=== PATIENT | male | born 1980 | race Caucasian/White ===

== ENCOUNTER 2019-03-10 11:31 | Emergency (ER) | payer BC, SELFPAY ==
[2019-03-10 11:32] VITALS: BP 163/97; PULSE 114; RESP 18; TEMP 36.3; O2SAT 96; BMI 47.5
--- NOTE | 2019-03-10 12:40 | ED.VISSUMM ---
- ER Visit Summary Date of Service: 03/10/19 Chief Complaint: Back pain History of Present Illness: The patient is a 38 M presenting for evaluation secondary to back pain. Patient reports that over the course of the last 3 days he has had a gradual onset of back pain. Is located in his lower back and radiates down his left leg to approximately the level of his calf. He denies that there is any sort of injury associated with this, no increased activity lifting twisting pushing pulling or fall. It is continuous type pain that is worse with movement. Patient states that it has been causing him to have some sweats. He denies any weakness bowel or bladder incontinence or fevers. He denies any recent injections surgeries or history of IV drug abuse. Review of systems otherwise negative. Physical Examination: Vitals: Within normal limits General: Well-nourished well-developed no acute distress Head: Normocephalic atraumatic ENT: Moist mucous membranes Neck: Supple no JVD Cardiovascular: Heart regular rate and rhythm no murmurs Respiratory: Respirations nondistressed, lung sounds clear to auscultation bilaterally Abdominal: Soft, nontender, nondistended, normal bowel sounds, no evidence of abdominal masses or pulsatile mass Back: Normal to inspection, no midline tenderness to palpation, left-sided paraspinal tenderness at the SI joint, straight leg raise positive on the left at about 20 degrees Extremities: Nontender, nonedematous, 2+ radial and PT pulses bilaterally symmetric Skin: Normal color no rash Neuro: 5/5 strength hip flexion, knee flexion, knee extension, dorsiflexion, plantarflexion, EHL. Sensation intact over all dermatomes of the lower extremities bilaterally, 2+ patellar and Achilles reflexes bilaterally symmetric, negative clonus bilaterally Test Results: Lumbar x-rays per radiology shows some degenerative disease Emergency Department Course and Treatment: Patient presented secondary to back pain. His pain was addressed with Toradol [place] and Flexeril. X-rays showed some degenerative disc disease. Repeat evaluation in a patient at 1330 showed symptomatic improvement. Patient has no red flag signs or symptoms, he has a nonfocal neurologic exam, and I believe that his pain likely is from lumbar radiculopathy. Patient will be sent home with a short course of [place] and a Medrol pack. All questions were answered and patient was discharged. Disposition: Discharge Impression: 1. Lumbar radiculopathy This note was generated with [employer] dictation software. It may contain incorrect words, spelling, and punctuation that were not noted in review of the chart prior to signing ED Disposition - Plan for ED Patient: Disposition: Home or Assisted Living Diagnosis: Lumbar radiculopathy, acute Instructions: ED Sciatica Prescriptions: Hydrocodone Bitart/Apap 5-325 [[place] 5MG-325MG] 1 tab PO Q6H PRN PRN 3 Days #12 tab PRN Reason: Pain MethylPREDNISolone DosePak [Medrol DosePak] 4 mg PO UD #1 box Referrals: Hunter La MD [Primary Care Provider] - 1 Week if not improving
[2019-03-10] MEDS: HYDROcodone Bitartrate/Apap 5/325 Tablet PO (12:41)
[2019-03-10] MEDS: Ketorolac 30 MG/ML Syringe IM (12:41)
--- NOTE | 2019-03-10 13:00 | RAD_ITS ---
STUDY: X-RAY - LUMBAR SPINE REASON FOR EXAM: Male, 38 years old. lower back pain since Friday -- patient claims previously injured back 4 years ago TECHNIQUE: 3 view(s) of the lumbar spine were obtained. COMPARISON: None FINDINGS: Normal lumbar lordosis. There is multilevel endplate spondylosis of the lumbar vertebrae. There is multi-level degenerative disc disease with multi-level disc space narrowing. The soft tissue structures are unremarkable. RAD/Lumbar Spine 2 or 3 Views IMPRESSION: Degenerative changes of the spine. Electronically Signed: Dionte Spangler MD at 13:22 EDT Tel , Service support ,
== END 2019-03-10 13:52 | disposition home or self-care (01) ==
PROVIDERS: Emergency Provider Emergency Medicine; Family Provider Family Medicine; PCP Family Medicine
DX: M54.16 Radiculopathy, lumbar region (principal)
CPT/HCPCS: 72100; 96372; 99283

== ENCOUNTER → 2019-07-21 08:50 | Outpatient (CLI) | payer BC, SELFPAY ==
[2019-07-21 12:22] LABS: Absolute Neutrophil Count 3.7 X10^3/uL (2.0-7.7); Basophil# 0.04 X10^3/uL; Basophil% 0.5 % (0-1); Eosinophil# 0.26 X10^3/uL; Eosinophils% 3.5 % (0-5); Hematocrit 45.9 % (40-54); Hemoglobin 15.1 g/dL (13.0-16.5); Lymphocyte % 35.1 % (19-41); Mean Corp Hgb Conc 32.9 g/dL (32-36); Mean Corpuscular Hgb 29.8 pg (27.0-32.0); Mean Corpuscular Volume 90.7 fL (80-94); Mean Platelet Vol. 10.6 fl (6.2-12.0); Monocyte# 0.81 X10^3/uL; Monocyte% 10.9 % (0-10); NRBC Flagged by Analyzer 0 % (0-5); Neutrophil # 3.67 X10^3/uL (2.7-7.7); Neutrophil % 49.7 % (47-70); Platelet Count 261 K/mm3 (150-450); RBC Distribution Width CV 12.2 % (11.6-14.6); RBC Distribution Width SD 40.2 fl (35.1-43.9); Red Blood Count 5.06 M/mm3 (4.6-6.2); White Blood Count 7.4 K/mm3 (4.4-11.0)
[2019-07-21 12:44] LABS: ALB/GLOB Ratio 1.1 RATIO (0.9-2.4); AST(SGOT) 17 U/L (15-37); Alanine Aminotransfer ALT/SGPT 35 U/L (16-61); Albumin, Serum 3.9 g/dL (3.2-5.0); Alkaline Phosphatase 82 U/L (45-117); Anion Gap 8 (5-15); BUN 12 mg/dL (7-18); BUN/Creat Ratio 13.5 RATIO (10-20); Chloride 110 mmol/L (98-107); Cholesterol 194 mg/dL (200); Creatinine, Serum 0.89 mg/dL (0.70-1.30); EST Glomerular Filtration Rate 101 mL/min (>60); Est Glom Filt Rate - Afr Amer 122 mL/min (>60); Globulin 3.6 g/dL (2.2-4.2); Glucose 81 mg/dL (74-106); High Density Lipoprotein 40 mg/dL; Potassium 3.9 mmol/L (3.5-5.1); Protein, Total 7.5 g/dL (6.4-8.2); Sodium Level 144 mmol/L (136-145); Triglycerides 106 mg/dL; Very Low Density Lipoprotein 21 mg/dL (5-40)
== END ==
PROVIDERS: Family Provider Family Medicine; PCP Family Medicine; Visit Provider Family Medicine
DX: Z00.00 Encounter for general adult medical examination without abnormal findings (principal)
CPT/HCPCS: 36415; 80053; 80061; 85025

== ENCOUNTER → 2021-10-09 13:25 | Outpatient (CLI) | payer BC, SELFPAY | PROVIDERS: PCP Family Medicine; Referring Provider Family Medicine; Visit Provider Family Medicine | DX: R53.83 Other fatigue (principal); G47.01 Insomnia due to medical condition; Z68.42 Body mass index [BMI] 45.0-49.9, adult | CPT/HCPCS: 95806 ==

== ENCOUNTER → 2024-05-20 | Outpatient (CLI) | payer BC, SELFPAY ==
[2024-05-20 15:05] LABS: Absolute Lymphocyte Count 3.27 X10^3/uL (0.83-4.51); Absolute Neutrophil Count 3.8 X10^3/uL (2.0-7.7); Basophil# 0.07 X10^3/uL; Basophil% 0.8 % (0-1); Eosinophil# 0.33 X10^3/uL; Eosinophils% 3.9 % (0-5); Hematocrit 44.9 % (40-54); Hemoglobin 14.6 g/dL (13.0-16.5); Lymphocyte # 3.27 X10^3/ul (0.83-4.51); Lymphocyte % 39.1 % (19-41); Mean Corp Hgb Conc 32.5 g/dL (32-36); Mean Corpuscular Hgb 29.1 pg (27.0-32.0); Mean Corpuscular Volume 89.6 fL (80-94); Mean Platelet Vol. 10.8 fl (6.2-12.0); Monocyte# 0.89 X10^3/uL; Monocyte% 10.6 % (0-10); NRBC Flagged by Analyzer 0 % (0-5); Neutrophil # 3.79 X10^3/uL (2.7-7.7); Neutrophil % 45.4 % (47-70); Platelet Count 268 K/mm3 (150-450); RBC Distribution Width CV 12.1 % (11.6-14.6); RBC Distribution Width SD 40.1 fl (35.1-43.9); Red Blood Count 5.01 M/mm3 (4.6-6.2); White Blood Count 8.4 K/mm3 (4.4-11.0)
[2024-05-20 15:26] LABS: ALB/GLOB Ratio 1.2 RATIO (0.9-2.4); AST(SGOT) 23 U/L (15-37); Alanine Aminotransfer ALT/SGPT 38 U/L (16-61); Albumin, Serum 4.2 g/dL (3.2-5.0); Alkaline Phosphatase 79 U/L (45-117); Anion Gap 8 (5-15); BUN 17 mg/dL (7-18); Calcium,Total 9.7 mg/dL (8.5-10.1); Chloride 105 mmol/L (98-107); Cholesterol 242 mg/dL (200); Creatinine, Serum 0.94 mg/dL (0.70-1.30); EST Glomerular Filtration Rate 92 mL/min (>60); Est Glom Filt Rate - Afr Amer 111 mL/min (>60); Globulin 3.5 g/dL (2.2-4.2); Glucose 87 mg/dL (74-106); High Density Lipoprotein 40 mg/dL; Potassium 4.1 mmol/L (3.5-5.1); Protein, Total 7.7 g/dL (6.4-8.2); Sodium Level 139 mmol/L (136-145); Thyroid Stim Hormone (TSH) 2.01 uIU/mL (0.358-3.74); Triglycerides 159 mg/dL; Very Low Density Lipoprotein 32 mg/dL (5-40)
[2024-05-20 15:29] LABS: Hemoglobin A1c 5.3 % (3.8-5.6)
== END | disposition home or self-care (01) ==
LOC: BFHLAB 13:28
PROVIDERS: PCP Family Medicine; Referring Provider Family Medicine; Visit Provider Family Medicine
DX: Z00.01 Encounter for general adult medical examination with abnormal findings (principal); R03.0 Elevated blood-pressure reading, without diagnosis of hypertension
CPT/HCPCS: 36415; 80053; 80061; 83036; 84443; 85025

== ENCOUNTER 2024-08-18 11:41 | Emergency (ER) | payer BC, SELFPAY ==
[2024-08-18 11:42] VITALS: BP 166/117; PULSE 108; RESP 16; TEMP 36.7; O2SAT 98; BMI 45.4
--- NOTE | 2024-08-18 12:22 | EKG12_ITS ---
Test Reason : CP Blood Pressure : / mmHG Vent. Rate : 102 BPM Atrial Rate : 102 BPM P-R Int : 176 ms QRS Dur : 086 ms QT Int : 354 ms P-R-T Axes : 036 -32 009 degrees QTc Int : 461 ms Sinus tachycardia Left axis deviation Abnormal ECG Confirmed by Simon Campos ([id number]), technical editor ANETA ORELLANA ([id number]) on 08/20/2024 9:36:12 AM Referred By: JAMA/JOSUE Confirmed By:Simon Campos
[2024-08-18 12:26] VITALS: O2SAT 97
[2024-08-18] MEDS: 0.9% Normal Saline (1000mL) 1,000 ML 999 ML IV (12:29)
--- NOTE | 2024-08-18 12:30 | RAD_ITS ---
STUDY: X-RAY CHEST REASON FOR EXAM: Male, 43 years old. Chest pain. TECHNIQUE: Frontal and lateral views of the chest. COMPARISON: None. FINDINGS: The lungs are clear and expanded. Granulomatous calcifications. There is no demonstrated pleural abnormality. Normal size heart. Normal mediastinum and nato. Normal visualized pulmonary arteries. Mild aortic tortuosity. Mild thoracic spondylosis. Normal visualized ribs, clavicles, and shoulders. No abnormality of the visualized soft tissue structures of the upper abdomen. RAD/Chest PA and Lateral IMPRESSION: No active or acute cardiopulmonary disease. Electronically Signed: Quintin Goncalves MD at 12:45 EDT ,
[2024-08-18 12:36] LABS: Absolute Lymphocyte Count 2.85 X10^3/uL (0.83-4.51); Absolute Neutrophil Count 4.9 X10^3/uL (2.0-7.7); Basophil# 0.06 X10^3/uL; Basophil% 0.7 % (0-1); Eosinophil# 0.23 X10^3/uL; Eosinophils% 2.6 % (0-5); Hematocrit 44.1 % (40-54); Hemoglobin 14.8 g/dL (13.0-16.5); Lymphocyte # 2.85 X10^3/ul (0.83-4.51); Lymphocyte % 31.6 % (19-41); Mean Corp Hgb Conc 33.6 g/dL (32-36); Mean Corpuscular Hgb 29.7 pg (27.0-32.0); Mean Corpuscular Volume 88.4 fL (80-94); Mean Platelet Vol. 10.3 fl (6.2-12.0); NRBC Flagged by Analyzer 0 % (0-5); Neutrophil # 4.92 X10^3/uL (2.7-7.7); Neutrophil % 54.5 % (47-70); Platelet Count 271 K/mm3 (150-450); RBC Distribution Width CV 12.2 % (11.6-14.6); RBC Distribution Width SD 39.4 fl (35.1-43.9); Red Blood Count 4.99 M/mm3 (4.6-6.2)
[2024-08-18 12:43] VITALS: BP 133/89; PULSE 88; RESP 18; O2SAT 97
[2024-08-18 12:47] LABS: D-Dimer Quantitative (DVT/PE) 0.49 FEU/ug/m (0.27-0.49)
--- NOTE | 2024-08-18 12:48 | EDS_ITS ---
HPI History of Present Illness Chief Complaint: Chest Pain Informant: patient Narrative Narrative: Patient is a 43-year-old male with history of GERD, hypertension and hyperlipidemia presenting with chest discomfort. Patient states he has had sensation of his heart racing. Symptoms started a couple days ago but were worse last night and have been constant since then but fluctuate in intensity. He states he has discomfort across his chest. He feels mildly short of breath. Seems to be worse when he lays back. He denies any cough, fever or URI symptoms. He has some chronic swelling of his legs with this is unchanged. Denies a history of DVT or PE. He is not any blood thinners. Notes that in February he was diagnosed with an ulcer in his stomach and he is on Prilosec and Carafate for this. He states he has had some mild soreness in his epigastric a nd right upper quadrant since but that is improving. He denies associated nausea, vomiting or black or blood in his stool. Notes that he had similar chest discomfort in 2021 and at that time he was seen in the ER and everything was normal and he was discharged home. He denies any other complaints or concerns at this time. [facility] Medical History IBS (irritable bowel syndrome) GERD (gastroesophageal reflux disease) Home Medications ?Medication ?Instructions ?Recorded ?Last Taken ?Type cholecalciferol (vitamin D3) 50 50 mcg PO DAILY 05/14/24 Unknown History mcg (2,000 unit) capsule omega 4-mcc-gjl-fish oil 1,200 mg cap PO 05/14/24 Unknown History (144 mg-216 mg) capsule (Fish Oil) omeprazole magnesium 20 mg 20 mg PO DAILY 05/14/24 Unknown History tablet,delayed release (Prilosec OTC) sucralfate 1 gram tablet 1 g PO 4X/DAY 05/14/24 Unknown History sour bartholomew extract 1,000 mg mg PO DAILY 07/02/24 Unknown History capsule (Tart Bartholomew Extract) Allergy/AdvReac Type Severity Reaction Status Date / Time ragweed pollen Allergy Mild Other Verified 08/18/24 11:43 cat dander (cats) AdvReac Mild Other Verified 08/18/24 11:43 Environmental Allergies: AdvReac Mild Other Verified 08/18/24 11:43 Uncoded (dust mites) Family History Mother Asthma Cancer uterine Father CVA (cerebral vascular accident) Grandfather CVA (cerebral vascular accident) Surgical History S/P tonsillectomy Social History Smoking Status: Never smoker alcohol intake: current alcohol intake frequency: a few times a week ROS ROS ED Constitutional Constitutional ED: Reports sweats; Denies chills or fever(s) ENT ENT ED: Denies rhinorrhea or sore throat Cardiovascular Cardiovascular: Reports chest pain and racing heartbeat Respiratory/Chest Respiratory/Chest: Denies cough, dyspnea or dyspnea on exertion Gastrointestinal Gastrointestinal: Reports abdominal pain; Denies constipation, nausea or vomiting Musculoskeletal Musculoskeletal: Denies arthralgias or myalgias Integumentary Denies rash Neurologic Neurologic: Denies headache(s) or weakness Hematologic/Lymphatic Hematologic/Lymphatic: Denies easy bleeding or easy bruising EXAM Physical Exam Const Vital Signs: 08/18/24 11:42 08/18/24 12:26 08/18/24 12:43 Temperature 98.1 F Temperature Source Oral Pulse Rate 108 H 88 Respiratory Rate 16 18 Respiratory Effort Blood Pressure 166/117 H 133/89 H Blood Pressure Mean 133 103 Pulse Ox 98 97 97 Oxygen Delivery Method Room Air Room Air Room Air 08/18/24 12:45 08/18/24 13:00 Temperature Temperature Source Pulse Rate 76 Respiratory Rate 14 Respiratory Effort Normal Non-Labored Blood Pressure 137/90 H Blood Pressure Mean 105 Pulse Ox 96 Oxygen Delivery Method Room Air Positive well nourished and well developed General Appearance ED: well developed and NAD HEENT Reports moist mucous membranes Eyes PERRL and EOMs intact bilaterally Neck supple and no JVD Chest Wall inspection of chest normal and palpation of chest normal Resp normal respiratory effort and clear to auscultation bilaterally Cardio regular rhythm and no murmurs Rate: tachycardic GI normal to inspection, nondistended, normoactive bowel sounds, soft to palpation and non-tender Extremity normal to inspection General Extremety ED: Negative for edema General Extremity: Negative for edema Neuro oriented x3 Sensorium / Orientation: awake and alert Motor Exam: Negative for general weakness Psych mental status grossly normal Skin no rashes or lesions noted and no wounds Heart Score History: Slightly/Non-Suspicious ECG: Normal Age: </= 45 years Risk Factors: 1 or 2 Risk Factors Troponin: </= Normal Limit Score: 1 MDM MDM MDM Narrative Medical decision making narrative: Patient evaluated for chest discomfort as well as racing heart and tachycardia. Patient's vital signs significant on arrival for mild tachycardia and hypertension. He is 98% on room air. Overall is quite well-appearing. Differential includes pulmonary emboli, ACS, myocarditis, pericarditis, pneumothorax, pneumonia, dehydration, thyroid dysfunction, symptomatic anemia and electrolyte abnormality. Patient is given a liter of IV fluids which does improve his tachycardia significantly. Blood pressure is normalized without any further intervention. CBC and BMP normal. Patient's troponin is less than 3. His TSH is normal. His D-dimer is normal at 0.49. I do not think requires a CTA. Two-view chest x-ray viewed by myself as well as radiology does not show any acute process. EKG does not show any acute ischemia. Patient reevaluated. He is well-appearing. He feels better after receiving IV fluids. Discussed that while the cause of his symptoms is not clear at this time I do not see a more severe process and feel that he is safe for outpatient follow-up. Patient verbalized agreement understand this plan. Will be discharged home to continue follow-up outpatient. He verbalized agreement understand this plan. Lab Data Attestation: I reviewed the patient's lab results. Labs: Laboratory Results - last 24 hr 08/18/24 12:05 WBC 9.0 RBC 4.99 Hgb 14.8 Hct 44.1 MCV 88.4 MCH 29.7 MCHC 33.6 RDW Std Deviation 39.4 RDW Coeff of Neil 12.2 Plt Count 271 MPV 10.3 Immature Gran % (Auto) 0.600 Neut % (Auto) 54.5 Lymph % (Auto) 31.6 [place] % (Auto) 10.0 Eos % (Auto) 2.6 Baso % (Auto) 0.7 Absolute Neuts (auto) 4.9 Absolute Lymphs (auto) 2.85 Nucleated RBC % 0 D-Dimer Quant (PE/DVT) 0.49 Sodium 138 Potassium 3.4 L Chloride 106 Carbon Dioxide 25.0 Anion Gap 7 BUN 14 Creatinine 0.87 Estim Creat Clear Calc 169.26 Est GFR (MDRD) Af Amer 122 Est GFR (MDRD) Non-Af 101 BUN/Creatinine Ratio 16.1 Glucose 115 H Calcium 9.8 Magnesium 2.2 Troponin I High Sens < 3 L TSH 2.530 Radiography Chest X-Ray - ED: 2 View, Read by ED Physician, Read by Radiologist and No Acute Disease Diagnostic Testing: Clinical Impression(s) from Imaging Studies Chest X-Ray 08/18/24 12:30 IMPRESSION: No active or acute cardiopulmonary disease. Electronically Signed: Quintin Goncalves MD at 12:45 EDT , Rhythm Strip Rhythm Strip: Sinus Tach Rate: 102 Ectopy: None EKG Initial EKG: Attestation: I personally reviewed and interpreted this EKG as follows: Interpretation: Sinus Tachycardia Comments: Sinus tachycardia rate of 102 bpm Left axis deviation Normal intervals Normal ST segments Prior EKG tracings: not available for review Prior: No Prior Discharge Plan Triage Chief Complaint: Chest Pain ED Provider: Kaia Sanders Dx/Rx/DC Orders Clinical Impression: Chest pain, Tachycardia Instructions: ED Chest Pain, Uncertain Cause Prescriptions: No Action omega 0-cpb-ewp-fish oil [Fish Oil] 1,200 (144-216) mg capsule PO cholecalciferol (vitamin D3) 50 mcg (2,000 unit) capsule 50 mcg PO DAILY omeprazole magnesium [Prilosec OTC] 20 mg tablet,delayed release (DR/EC) 20 mg PO DAILY sucralfate 1 gram tablet 1 g PO 4X/DAY Tart Bartholomew Extract 1,000 mg capsule PO DAILY Primary Care Provider: Mikhail Zaragoza Referrals: Mikhail Zaragoza DO [Primary Care Provider] - Activity Restrictions/Additional Instructions: Your workup overall was very normal today. The cause your symptoms is not clear. There could have been a component as your heart rate did improve with IV fluids. At this time I feel it is safe for you to follow-up with your primary care doctor outpatient. Please return to get a progression worsening your symptoms. Print Language: Micronesian Disposition Disposition: Home, Self Care
[2024-08-18 13:00] VITALS: BP 137/90; PULSE 76; RESP 14; O2SAT 96
[2024-08-18 13:02] LABS: Anion Gap 7 (5-15); BUN 14 mg/dL (7-18); BUN/Creat Ratio 16.1 RATIO (10-20); Calcium,Total 9.8 mg/dL (8.5-10.1); Chloride 106 mmol/L (98-107); Creatinine, Serum 0.87 mg/dL (0.70-1.30); EST Glomerular Filtration Rate 101 mL/min (>60); Est Glom Filt Rate - Afr Amer 122 mL/min (>60); Estimated Creatinine Clearance 169.26 ml/min; Glucose 115 mg/dL (74-106); Magnesium 2.2 mg/dL (1.6-2.6); Potassium 3.4 mmol/L (3.5-5.1); Sodium Level 138 mmol/L (136-145); Troponin-I HS < 3 pg/mL (3.0-78.0)
[2024-08-18 14:00] VITALS: BP 132/91; PULSE 73; RESP 16; O2SAT 98
[2024-08-18 14:11] VITALS: BP 132/91; PULSE 76; RESP 16; TEMP 36.8; O2SAT 99
== END 2024-08-18 14:13 | disposition home or self-care (01) ==
PROVIDERS: Emergency Provider Emergency Medicine; PCP Family Medicine; Visit Provider Emergency Medicine
DX: R07.9 Chest pain, unspecified (principal); R00.0 Tachycardia, unspecified
CPT/HCPCS: 71046; 80048; 83735; 84443; 84484; 85025; 85379; 93005; 96360; 96361; 99284; J7030; A4216

== ENCOUNTER → 2025-08-02 | Outpatient (CLI) | payer BC, SELFPAY ==
[2025-08-02 19:16] LABS: AST(SGOT) 22 U/L (<=37); Alanine Aminotransfer ALT/SGPT 24 U/L (<=46); Albumin, Serum 4.4 g/dL (3.5-5.0); Alkaline Phosphatase 89 U/L (40-129); Anion Gap 12 (5-15); BUN 13 mg/dL (4-19); BUN/Creat Ratio 14.6 RATIO (10-20); Calcium,Total 9.6 mg/dL (7.6-11.0); Carbon Dioxide 22.1 mmol/L (21.0-32.0); Chloride 104 mmol/L (98-108); Cholesterol 222 mg/dL (<=200); Globulin 3.0 g/dL (2.2-4.2); Glucose 90 mg/dL (70-99); Low Density Lipoprotein Calc. 171 mg/dL; Potassium 4.2 mmol/L (3.3-5.1); Triglycerides 77 mg/dL; Very Low Density Lipoprotein 15 mg/dL (5-40); Vitamin D,25 Hydroxy 22.0 ng/mL (30-100); cholesterol:hdl ratio screen 6.18
== END | disposition home or self-care (01) ==
LOC: BFHLAB 14:51
PROVIDERS: PCP Family Medicine; Visit Provider Family Medicine
DX: Z00.00 Encounter for general adult medical examination without abnormal findings (principal); E55.9 Vitamin D deficiency, unspecified
CPT/HCPCS: 36415; 80053; 80061; 82306; 83036

== ENCOUNTER → 2025-08-18 | Outpatient (CLI) | payer BC, SELFPAY ==
--- NOTE | 2025-08-18 13:20 | STRESSREP ---
Stress Test Report Date: 08/18/2025 Procedure: Exercise tolerance test Indications: Chest pain Consent: Per the patient Procedure: The patient exercised on a Lucas protocol for 6 minutes and 30 seconds achieving a peak heart rate of 157 bpm (89% predicted maximal heart rate) with a peak blood pressure 172/98 mmHg and a peak MET capacity of approximately 8.4 MET's. The baseline ECG demonstrated sinus rhythm. The peak exercise ECG showed sinus tachycardia with no ischemic changes. There were no cardiac dysrhythmias pretest, during exercise, or recovery. The functional capacity was considered average. The patient had no complaints of chest discomfort during exercise or recovery. The examination was discontinued secondary to target heart rate being achieved and dyspnea. Impression: 1. Technically adequate (percent predicted maximal heart rate greater than 85%) exercise tolerance test 2. Peak exercise ECG with no ischemic changes 3. There were no cardiac dysrhythmias during exercise or recovery This note was generated with [employer] software. It may contain incorrect words, spelling, and punctuation that were not noted in checking the note before signing.
== END | disposition home or self-care (01) ==
LOC: CVS 12:25
PROVIDERS: PCP Family Medicine; Referring Provider Family Medicine; Visit Provider Family Medicine
DX: R07.9 Chest pain, unspecified (principal)
CPT/HCPCS: 93017